=== PATIENT | female | born 1995 | race Caucasian/White ===

== ENCOUNTER 2024-04-10 21:00 | Emergency (ER) | payer BC, SELFPAY ==
[2024-04-10 21:08] VITALS: BP 130/78
[2024-04-10 21:29] LABS: % Basophils 0.3 % (0-2); % Eosinophils 2.5 % (0-6); % Immature Granulocytes 0.3 % (0-0.5); % Lymphocytes 22.3 % (20.5-51.1); % Monocytes 6.3 % (1.7-9.3); % Neutrophils 68.3 % (42.2-75.2); Absolute Eosinophils 0.2 10^3/uL (0-0.7); Absolute Lymphocytes 2.2 10^3/uL (1.2-3.4); Absolute Monocytes 0.6 10^3/uL (0.1-0.6); Absolute Neutrophils 6.6 10^3/uL (1.4-6.5); Hematocrit 33.6 % (37.0-47.0); Hemoglobin 10.7 g/dL (12.0-16.0); Mean Corp Hgb Conc. 31.8 g/dL (33.0-37.0); Mean Platelet Volume 10.4 fL (7.4-10.4); Nucleated Red Blood Cells % 0 %; Platelet Count 238 10^3/uL (130-400); Red Blood Cell Count 3.82 10^6/uL (4.20-5.40); Red Cell Dist. Width 13.9 % (11.5-14.5); White Blood Cell Count 9.7 10^3/uL (4.8-10.8)
[2024-04-10 21:44] LABS: ALT (SGPT) 14 U/L (0-35); AST (SGOT) 28 U/L (14-36); Albumin 4.1 g/dl (3.5-5.0); Alkaline Phosphatase 62 U/L (38-126); Blood Urea Nitrogen 12 mg/dl (7-17); Carbon Dioxide 29 mmol/L (22-30); Chloride 104 mmol/L (98-107); Glucose 98 mg/dl (70-99); Lipase 481 U/L (23-300); Potassium 3.5 mmol/L (3.5-5.1); Sodium 139 mmol/L (135-145); Total Bilirubin 0.4 mg/dl (0.2-1.3); Total Protein 6.7 g/dl (6.3-8.2); eGFR > 60.00
[2024-04-10 23:39] VITALS: BMI 32.8
[2024-04-10 23:43] VITALS: BP 125/64
--- NOTE | 2024-04-10 23:54 | ED.GENMED ---
History of Present Illness
General
Chief Complaint: Abdominal Symptoms
Source: patient
Exam Limitations: none
Time Seen by Provider: 04/10/24 23:10
Travel History
Have you had any contact with someone who has COVID-19?: No
Do you have any symptoms of coronavirus? Fever > 100 degrees, chills, cough, shortness of breath, sore throat, loss of taste or smell, muscle aches, or headache?: No
History of Present Illness
History of Present Illness:
This is a 29 year old female that comes in with c/o abd pain. states that she has had abd pain but today it was much worse. states that it was this sudden onset of 10/10 pain and vomiting. States that she is to see the GI specialist but not until
June. State that after the vomiting she felt shaky and her hands felt numb. States that she was also lightheaded and thought that she was going to pass out. States that she had diarrhea, headache and dizziness. Denies any fevr, chills, chest pain,
SOB, urinary burning.
Past History
Past History
ED Past Medical History: Asthma
ED Past Surgical History: Tonsilectomy
Social History
Tobacco: Former smoker
Personal:
Living: with family
Review of Systems
Review of Systems
All Other Systems: ROS reviewed and negative except as documented in HPI and ROS
Constitutional: Reports no symptoms; Denies fever or chills
EENT: Reports no symptoms
Respiratory: Reports no symptoms; Denies cough or trouble breathing
Cardiac: Reports no symptoms; Denies chest pain
ABD/GI: Reports abdominal pain, nausea, vomiting and diarrhea
: Reports no symptoms; Denies dysuria, frequency or urgency
Musculoskeletal: Reports no symptoms
Skin: Reports no symptoms
Neurological: Reports dizzy and headache
Psychiatric: Reports no symptoms
Phy Exam
General Physical Exam
General Presentation: well appearing and no apparent distress
General age: appears stated age
General Skin: warm and dry
General Habitus: normal
General Mental: alert
General Hydration: appears well hydrated
ENT Exam
ENT Exam: TM's normal, pharynx normal and neck supple
Eye Exam
Eye Exam: EOMI
Cardiovascular Exam
Cardiovascular Exam: regular rate/rhythm, no edema, no murmur and normal peripheral pulses
Pulmonary Exam
Pulmonary Exam: lungs clear, no respiratory distress, no rales, chest non tender, no crackles, no rhonchi, no wheezing and no cough
Gastrointestinal Exam
Gastrointestinal Exam: normal bowel sounds, soft, no organomegaly, no pulsatile mass, non distended and tender (Upper epigastric and RUQ tenderness with palpation)
Musculoskeletal Exam
Musculoskeletal Exam: full ROM and no edema
Skin Exam
Skin Exam: normal color, warm/dry, no rash and no petechia
Psychiatric Exam
Psychiatric Exam: normal mood/affect
Course
Orders/Labs/Results
Orders:
Orders
04/10/24 21:24
Complete Blood Count/With Diff Urgent
Comprehensive Metabolic Panel Urgent
Lipase Urgent
04/11/24 00:00
US Abdomen Complete/Upper Urgent
Reason For Exam: Upper abd discomfort
Abnormal Lab Results
04/10/24
21:24
RBC 3.82 L 10^6/uL
(4.20-5.40)
Hgb 10.7 L g/dL
(12.0-16.0)
Hct 33.6 L %
(37.0-47.0)
MCHC 31.8 L g/dL
(33.0-37.0)
Absolute Neuts (auto) 6.6 H 10^3/uL
(1.4-6.5)
Lipase 481 H U/L
(23-300)
04/10/24 21:24
04/10/24 21:24
H/H slightlya low. Lipase mildly elevated.
Vital Signs
Initial and Last Documented VS:
Initial Vital Signs
Temp Pulse Resp BP Pulse Ox
98.6 F 73 20 130/78 99
04/10/24 21:08 04/10/24 21:08 04/10/24 21:08 04/10/24 21:08 04/10/24 21:08
Last Documented Vital Signs
Temp Pulse Resp BP Pulse Ox
97.9 F 60 16 126/64 100
04/10/24 23:43 04/11/24 01:40 04/11/24 01:40 04/11/24 01:40 04/11/24 01:40
MDM/Problems Addressed
Differential Diagnosis Includes:
Gastritis, pancreatitis,
MDM/Problems Addressed:
This is a 29 year old female that comes in with c/o abd pain and vomiting. States that she has been having issues and is going to see the GI specialist. however, today it was the worse.
will check labs and get US.
Back into see patient. Explained that she has a gallstone but there is not sign of wall thickening or gallbladder disease. This may be a gastritis. will place patient on Protonix for the next 30 days. Patient to follow up with the GI specialist in
June as scheduled. This could also be very early Pancreatitis. Encouraged patient no alcohol. Return with any concerns.
Chronic conditions affecting care:
NA
Acute Exacerbation and/or Progression of Chronic Illness:
NA
*Radiology
Radiology exam reviewed: radiology read reviewed (US night hawk- Mobile gallstones. No sonographic Cole's sign, wall thickening, pericholecystic fluid, or other signs of cholecystitis. common bile duct is unremarkable. Borderline fatty liver.
remainder of the visualized upper abd is unremarkable. )
*Pulse Oximetry
Patient hypoxic: no
*EKG
Interpreted by ED Provider?: NA
Rate: EKG- N/A
*Inventory Control Specialist Interpretation
Rate: Inventory Control Specialist- N/A
*Critical Care Note
Total Time (30-74mins, 75-104mins- exclusive of procedures): Not Applicable
ED Attending Note
-
Portions of this chart may have been created with voice recognition software.� Occasional wrong word or��sound alike� substitutions may have occurred due to the inherent limitations of voice recognition software.
Discharge Plan
Departure
Patient Disposition: Home (Routine Discharge)
Date of Disposition: 04/11/24
Time of Disposition: 01:43
Patient with high blood pressure during this ER visit?: No
Condition: Good
Covid-19: Not Applicable
Discharge Problem:
Acute upper abdominal pain, Gastritis
Instructions: Gastritis (DC), Abdominal Pain
Prescriptions:
New
pantoprazole [Protonix] 40 mg tablet,delayed release (DR/EC)
40 mg PO DAILY Qty: 30 0RF
Referrals:
NONE,* [Family Provider] -
Activity Restrictions/Additional Instructions:
As discussed, your blood work is normal. Your Ultrasound shows that you have a mobile gallstone but there is no other signs of gallbladder disease. This may be a gastritis. Please decrease your caffeine intake. Increase your water intake to 8-8oz
glasses daily. You have been given a prescription for Protonix. Your prescription has been sent to your Pharmacy. Please take this daily. Follow up with the GI specialist as scheduled. IF YOU HAVE INCREASED OR CHANGING PAIN, FEVER, OR YOU HAVE ANY
OTHER CONCERNS PLEASE RETURN TO THE EMERGENCY ROOM.
Interventions
Interventions:
*Risk Screen - Suicide Last Done: 04/10/24 21:08
*General Assessment Last Done: 04/10/24 21:08
*Neglect/Abuse Screening Last Done: 04/10/24 21:08
ED- Fall Risk Assessment Last Done: 04/10/24 23:35
DD-Fskaxs-Umfhbtrbvl Assessment Last Done: 04/10/24 23:35
Discharge Date and Time
Print Language: KHMER
[2024-04-11 01:40] VITALS: BP 126/64
== END 2024-04-11 01:55 | disposition home or self-care (01) ==
LOC: EMR 21:00
PROVIDERS: Emergency Medicine; EMERGENCY PHYSICIAN Emergency Medicine
DX: K29.00 Acute gastritis without bleeding (principal); R10.10 Upper abdominal pain, unspecified; R42 Dizziness and giddiness; R51.9 Headache, unspecified; R19.7 Diarrhea, unspecified; K80.20 Calculus of gallbladder without cholecystitis without obstruction; J45.909 Unspecified asthma, uncomplicated; Z87.891 Personal history of nicotine dependence
CPT/HCPCS: 99284; 76700; 80053; 83690; 85025

== ENCOUNTER 2024-04-21 03:44 | Day surgery (SDC) | payer BC, SELFPAY ==
[2024-04-21 00:33] VITALS: BP 132/81
--- NOTE | 2024-04-21 00:58 | ED.GENMED ---
History of Present Illness
<Jairo Bal PA-C - Last Filed: 04/22/24 15:07>
General
Chief Complaint: Abdominal Pain
Time Seen by Provider: 04/21/24 00:41
Travel History
Have you had any contact with someone who has COVID-19?: No
Do you have any symptoms of coronavirus? Fever > 100 degrees, chills, cough, shortness of breath, sore throat, loss of taste or smell, muscle aches, or headache?: No
History of Present Illness
History of Present Illness:
29-year-old female presents the emergency department for evaluation of worsening right upper quadrant pain. She was seen in this emergency department at ago for the same complaint and diagnosed with cholelithiasis. She has been adhering to a
low-fat diet however pain is gradually worsening. She has had frequent bouts of pain that wake her up from sleep. No vomiting or diarrhea
Past History
<Jairo Bal PA-C - Last Filed: 04/22/24 15:07>
Past History
ED Past Medical History: Asthma
ED Past Surgical History: Tonsilectomy
Social History
Tobacco: Former smoker
Personal:
Living: with family
Review of Systems
<Jairo Bal PA-C - Last Filed: 04/22/24 15:07>
Review of Systems
Allergies reviewed?: Yes
All Other Systems: ROS reviewed and negative except as documented in HPI and ROS
Phy Exam
<Jairo Bal PA-C - Last Filed: 04/22/24 15:07>
Physical Exam
Physical Exam:
GEN: Well appearing, NAD, WDWN
Eyes: PERRLA, EOMs intact, no scleral icterus
HENT: NCAT, oral mucosa moist
Lungs: CTAB, no wheezes, rales, rhonchi, normal chest wall excursion
Cardiac: RRR, no M/R/G, no peripheral edema. Radial pulses 2+ bilat
Abdomen: Soft, exquisitely tender to the RUQ, no rigidity
Neuro: AO x 3
MSK: No gross deformity or ecchymosis. No edema. No digital clubbing
Skin: No rashes, petechiae. Normal color, no pallor or jaundice.
Psych: Calm, cooperative, proper hygiene
Course
<Jairo Bal PA-C - Last Filed: 04/22/24 15:07>
Orders/Labs/Results
Orders:
Orders
04/21/24 00:54
US Abdomen Limited Urgent
Comment: repeat biliary d/t increased pain
Reason For Exam: RUQ pain
04/21/24 00:55
Test Result ONCE
04/21/24 01:04
Complete Blood Count/With Diff Urgent
Comprehensive Metabolic Panel Urgent
Direct Bilirubin Urgent
HCG, Serum Qualitative Screen Urgent
Lipase Urgent
04/21/24 01:12
HYDROmorphone [Dilaudid] 0.5 mg IV NOW STA
04/21/24 01:21
Fentanyl Citrate/Pf [Sublimaze] 50 mcg IV NOW STA
04/21/24 01:51
Urinalysis Reflex To Culture Urgent
Date Specimen was Collected: 04/21/24
Time Specimen was Collected: 01:50
04/21/24 03:00
Flush (0.9% Sodium Chloride) [Flush (Nss)] See Dose Instructions IV PER PROTOCOL
04/21/24 03:12
Admit/Transfer Patient As Directed
Co-Sign Provider:
Level of Care: Inpatient admission
Assign to:: Medical/Surgical
Physician / Group: htay
Diagnosis: Cholelithiasis with progressive CBD dilatioan concerning for choledocholith
Reason for Hospitalization: Cholelithiasis with progressive CBD dilatioan concerning for choledocholithiasis
Expected length of stay greater than two midnights?: Yes
ELOS- Estimated Length of Stay in days: 3
I certify the patient meets the requirements for IP care: Yes
Code Status As Directed
Resuscitation Status: Full Code
04/21/24 03:21
Add On- LAB Urgent
Tests Added?: direct bili
04/21/24 03:23
Ampicillin/Sulbactam 3 G [Unasyn] 3 gm 0.9% Sodium Chloride 100 ml [Nss] 100 ml IV NOW
04/21/24 04:38
0.9% Sodium Chloride 1000 ml [Nss] 1,000 ml IV 100 mls/hr
Bisacodyl [Dulcolax] 10 mg RECTAL [id number] PRN
Docusate W/Senna [Senokot-S] 1 tablet PO BIDPRN PRN
HYDROmorphone [Dilaudid] 0.5 mg IV Q4HPRN PRN
Ketorolac [Toradol] 10 mg IV Q6HPRN PRN
Ondansetron Injectable [Zofran] 4 mg IV Q6HPRN PRN
Polyethylene Glycol Powder [Miralax] 17 grams PO DAILYPRN PRN
04/21/24 04:38
Consult Notification Routine
Specialty to Notify: Gastroenterology
Date consulting provider notified: 04/21/24
Time consulting provider notified: 06:57
Notified:: Provider
Consult Notification Routine
Specialty to Notify: Surgical
Date consulting provider notified: 04/21/24
Time consulting provider notified: 06:56
Notified:: Provider
GASTROINTESTINAL CONSULT Routine
Consulting Provider: Angelica Silver
Was physician already notified: No
Reason for consult: Cholelithiasis with progressive CBD dilation suspect choledocholithiasis
SURGICAL CONSULT Routine
Consulting Provider: Gama Stevens
Was physician already notified: Yes
Reason for consult: Cholelithiasis with progressive CBD dilation suspect choledocholithiasis
Activity As Directed
Activity Level: With Assistance
Intake/ Output As Directed
Frequency: Per unit guidelines
Pneumatic Compression Sleeves As Directed
Type: Knee high
Vital Signs As Directed
Frequency: Per unit guidelines
DX Deep Vein Thrombosis Video Routine
04/21/24 Breakfast
NPO
Allow oral meds: No
Allow clear liquids: No
NPO with Ice Chips: Yes
MR Mrcp Without IN AM
Comment:
Reason For Exam: Cholelithiasis with progressive CBD dilation
Recent pill cam endoscopy?: No
04/21/24 07:34
Prothrombin Time IN AM
04/22/24 07:35
Complete Blood Count/No Diff IN AM
Comprehensive Metabolic Panel IN AM
04/23/24 06:00
Complete Blood Count/No Diff IN AM
Comprehensive Metabolic Panel IN AM
Abnormal Lab Results
04/21/24
01:04
Hct 35.9 L %
(37.0-47.0)
MPV 10.5 H fL
(7.4-10.4)
Glucose 101 H mg/dl
(70-99)
Total Bilirubin 2.3 H mg/dl
(0.2-1.3)
Direct Bilirubin 1.3 H mg/dl
(0.0-0.4)
AST 900 H* U/L
(14-36)
ALT 997 H* U/L
(0-35)
Alkaline Phosphatase 221 H U/L
(38-126)
04/21/24 01:04
04/21/24 01:04
Vital Signs
Initial and Last Documented VS:
Initial Vital Signs
Temp Pulse Resp BP Pulse Ox
98.1 F 58 22 132/81 100
04/21/24 00:33 04/21/24 00:33 04/21/24 00:33 04/21/24 00:33 04/21/24 00:33
Last Documented Vital Signs
Temp Pulse Resp BP Pulse Ox
97.8 F 57 18 131/53 98
04/22/24 07:00 04/22/24 07:00 04/22/24 07:00 04/22/24 07:00 04/22/24 07:45
<Micha Osorio, - Last Filed: 04/21/24 02:41>
Orders/Labs/Results
Orders:
Orders
04/21/24 00:54
US Abdomen Limited Urgent
Comment: repeat biliary d/t increased pain
Reason For Exam: RUQ pain
04/21/24 00:55
Test Result ONCE
04/21/24 01:04
Complete Blood Count/With Diff Urgent
Comprehensive Metabolic Panel Urgent
Direct Bilirubin Urgent
HCG, Serum Qualitative Screen Urgent
Lipase Urgent
04/21/24 01:12
HYDROmorphone [Dilaudid] 0.5 mg IV NOW STA
04/21/24 01:21
Fentanyl Citrate/Pf [Sublimaze] 50 mcg IV NOW STA
04/21/24 01:51
Urinalysis Reflex To Culture Urgent
Date Specimen was Collected: 04/21/24
Time Specimen was Collected: 01:50
04/21/24 03:00
Flush (0.9% Sodium Chloride) [Flush (Nss)] See Dose Instructions IV PER PROTOCOL
04/21/24 03:12
Admit/Transfer Patient As Directed
Co-Sign Provider:
Level of Care: Inpatient admission
Assign to:: Medical/Surgical
Physician / Group: htay
Diagnosis: Cholelithiasis with progressive CBD dilatioan concerning for choledocholith
Reason for Hospitalization: Cholelithiasis with progressive CBD dilatioan concerning for choledocholithiasis
Expected length of stay greater than two midnights?: Yes
ELOS- Estimated Length of Stay in days: 3
I certify the patient meets the requirements for IP care: Yes
Code Status As Directed
Resuscitation Status: Full Code
04/21/24 03:21
Add On- LAB Urgent
Tests Added?: direct bili
04/21/24 03:23
Ampicillin/Sulbactam 3 G [Unasyn] 3 gm 0.9% Sodium Chloride 100 ml [Nss] 100 ml IV NOW
04/21/24 04:38
0.9% Sodium Chloride 1000 ml [Nss] 1,000 ml IV 100 mls/hr
Bisacodyl [Dulcolax] 10 mg RECTAL [id number] PRN
Docusate W/Senna [Senokot-S] 1 tablet PO BIDPRN PRN
HYDROmorphone [Dilaudid] 0.5 mg IV Q4HPRN PRN
Ketorolac [Toradol] 10 mg IV Q6HPRN PRN
Ondansetron Injectable [Zofran] 4 mg IV Q6HPRN PRN
Polyethylene Glycol Powder [Miralax] 17 grams PO DAILYPRN PRN
04/21/24 04:38
Consult Notification Routine
Specialty to Notify: Gastroenterology
Date consulting provider notified: 04/21/24
Time consulting provider notified: 06:57
Notified:: Provider
Consult Notification Routine
Specialty to Notify: Surgical
Date consulting provider notified: 04/21/24
Time consulting provider notified: 06:56
Notified:: Provider
GASTROINTESTINAL CONSULT Routine
Consulting Provider: Angelica Silver
Was physician already notified: No
Reason for consult: Cholelithiasis with progressive CBD dilation suspect choledocholithiasis
SURGICAL CONSULT Routine
Consulting Provider: Gama Stevens
Was physician already notified: Yes
Reason for consult: Cholelithiasis with progressive CBD dilation suspect choledocholithiasis
Activity As Directed
Activity Level: With Assistance
Intake/ Output As Directed
Frequency: Per unit guidelines
Pneumatic Compression Sleeves As Directed
Type: Knee high
Vital Signs As Directed
Frequency: Per unit guidelines
DX Deep Vein Thrombosis Video Routine
04/21/24 Breakfast
NPO
Allow oral meds: No
Allow clear liquids: No
NPO with Ice Chips: Yes
MR Mrcp Without IN AM
Comment:
Reason For Exam: Cholelithiasis with progressive CBD dilation
Recent pill cam endoscopy?: No
04/21/24 07:34
Prothrombin Time IN AM
04/22/24 07:35
Complete Blood Count/No Diff IN AM
Comprehensive Metabolic Panel IN AM
04/23/24 06:00
Complete Blood Count/No Diff IN AM
Comprehensive Metabolic Panel IN AM
Abnormal Lab Results
04/21/24
01:04
Hct 35.9 L %
(37.0-47.0)
MPV 10.5 H fL
(7.4-10.4)
Glucose 101 H mg/dl
(70-99)
Total Bilirubin 2.3 H mg/dl
(0.2-1.3)
Direct Bilirubin 1.3 H mg/dl
(0.0-0.4)
AST 900 H* U/L
(14-36)
ALT 997 H* U/L
(0-35)
Alkaline Phosphatase 221 H U/L
(38-126)
04/21/24 01:04
04/21/24 01:04
Vital Signs
Initial and Last Documented VS:
Initial Vital Signs
Temp Pulse Resp BP Pulse Ox
98.1 F 58 22 132/81 100
04/21/24 00:33 04/21/24 00:33 04/21/24 00:33 04/21/24 00:33 04/21/24 00:33
Last Documented Vital Signs
Temp Pulse Resp BP Pulse Ox
97.8 F 57 18 131/53 98
04/22/24 07:00 04/22/24 07:00 04/22/24 07:00 04/22/24 07:00 04/22/24 07:45
<Jairo Bal PA-C - Last Filed: 04/22/24 15:07>
MDM/Problems Addressed
MDM/Problems Addressed:
29 yo female presents with worsening RUQ pain, found to have marked increase in LFTs with dilatation of CBD. Clinical exam c/w cholecystitis. Will be admitted for further management
<Micha Osorio DO - Last Filed: 04/21/24 02:41>
*Radiology
Radiology exam reviewed: preliminary read by ED provider (Large gallstone)
*Pulse Oximetry
Patient hypoxic: no
*Critical Care Note
Total Time (30-74mins, 75-104mins- exclusive of procedures): Not Applicable
Data Reviewed
Source: patient
Further Testing Considered But Not Given:
Consider CT but symptoms clearly biliary in nature
ED Attending Note
<Jairo Bal PA-C - Last Filed: 04/22/24 15:07>
-
Portions of this chart may have been created with voice recognition software.� Occasional wrong word or��sound alike� substitutions may have occurred due to the inherent limitations of voice recognition software.
<Micha Osorio DO - Last Filed: 04/21/24 02:41>
ED Attending Note
Patient seen and examined by attending physician: Yes
I performed the substantive portion of visit, reviewed & personally made and approve the management plan that is documented in note by myself or FRANCOISE.: Yes
ED Attending Note:
9-year-old female with right upper quadrant pain. Progressive LFTs and slight progression of common bile duct. Concern for choledocholithiasis versus cholecystitis versus cholelithiasis. IV antibiotics. Admit
Discharge Plan
Departure
Patient Disposition: Admit
Date of Disposition: 04/21/24
Time of Disposition: 02:40
Admit to: Med/Surg
Presentation/result/management discussed w/ accepting MD/DO: Hospitalist
Discharge Problem:
Cholelithiasis, Possible choledocholithiasis
Interventions
Interventions:
*Risk Screen - Suicide Last Done: 04/21/24 01:06
*General Assessment Last Done: 04/21/24 01:06
*Neglect/Abuse Screening Last Done: 04/21/24 00:39
ED- Fall Risk Assessment Last Done: 04/21/24 01:06
*ED COVID-19 Vaccine History Last Done: 04/21/24 00:39
*Nursing Disposition Last Done: 04/21/24 04:36
HT-Omegzf-Uinxrwcprg Assessment Last Done: 04/21/24 01:06
Discharge Date and Time
Discharge Date/Time: 04/21/24 04:36
[2024-04-21 01:04] VITALS: BP 125/71
[2024-04-21 01:06] VITALS: BMI 32.6
[2024-04-21 01:09] LABS: % Basophils 0.3 % (0-2); % Eosinophils 2.3 % (0-6); % Immature Granulocytes 0.4 % (0-0.5); % Lymphocytes 25.2 % (20.5-51.1); % Monocytes 7.2 % (1.7-9.3); % Neutrophils 64.6 % (42.2-75.2); Absolute Eosinophils 0.2 10^3/uL (0-0.7); Absolute Lymphocytes 1.8 10^3/uL (1.2-3.4); Absolute Monocytes 0.5 10^3/uL (0.1-0.6); Absolute Neutrophils 4.7 10^3/uL (1.4-6.5); Hematocrit 35.9 % (37.0-47.0); Mean Corp Hgb Conc. 33.4 g/dL (33.0-37.0); Mean Corpuscular Hgb 27.8 pg (27.0-31.0); Mean Corpuscular Volume 83.3 fL (81.0-99.0); Mean Platelet Volume 10.5 fL (7.4-10.4); Nucleated Red Blood Cells % 0 %; Platelet Count 241 10^3/uL (130-400); Red Blood Cell Count 4.31 10^6/uL (4.20-5.40); Red Cell Dist. Width 13.8 % (11.5-14.5); White Blood Cell Count 7.3 10^3/uL (4.8-10.8)
[2024-04-21] MEDS: SUBLIMAZE 50 MCG IV (01:28)
[2024-04-21 01:37] LABS: Albumin 4.4 g/dl (3.5-5.0); Alkaline Phosphatase 221 U/L (38-126); Blood Urea Nitrogen 9 mg/dl (7-17); Calcium 9.9 mg/dl (8.4-10.2); Carbon Dioxide 27 mmol/L (22-30); Chloride 107 mmol/L (98-107); Estimated Creatinine Clearance > 125 ml/min; Glucose 101 mg/dl (70-99); Lipase 110 U/L (23-300); Potassium 3.8 mmol/L (3.5-5.1); Sodium 142 mmol/L (135-145); Total Bilirubin 2.3 mg/dl (0.2-1.3); Total Protein 7.1 g/dl (6.3-8.2); eGFR > 60.00
[2024-04-21 01:44] LABS: ALT (SGPT) 997 U/L (0-35); AST (SGOT) 900 U/L (14-36)
[2024-04-21 01:46] LABS: HCG, Serum Qualitative Screen Negative
[2024-04-21 02:00] LABS: Urine Albumin Negative (Neg - Trace); Urine Bilirubin Negative (Negative); Urine Character Clear (Clear); Urine Color Yellow; Urine Glucose Negative (Negative); Urine Ketone Negative (Negative); Urine Leukocyte Negative (Negative); Urine Nitrite Negative (Negative); Urine Occult Blood Negative (Negative); Urine Urobilinogen Negative (Neg - 1+)
--- NOTE | 2024-04-21 03:06 | HPS.HSE ---
Addendum entered and electronically signed by Andrade Oconnor MD 04/21/24 13:38:
MRCP without
1. Mild biliary dilatation without evidence for choledocholithiasis.
2. 1.1 cm gallstone and mild gallbladder distention.
3. Mild hepatomegaly.
4. Small amount of peritoneal fluid in the pelvis and right paracolic gutter.
Original Note:
Family Physician
-
Family Physician: * NONE
Chief Complaint
-
worsening right upper quadrant pain.
History of Present Illness
HPI
29F recently evaluated at ER for acute RUQ pain on 04/10. POS US for GS and CBD was 5 mm then.
Retuned to ER for evaluation of worsening right upper quadrant pain despite compliance with low fat diet, more frequent RUQ pain.
ROS:
denied chills and fever
Denied emesis
Medical History
Past Medical History
Past Medical History: Reports Asthma
Past Surgical History: Reports Tonsilectomy
Social History
Tobacco: Former Smoker
Alcohol: Occasional
Personal:
Living: With Family
Family History
Family History: Not pertinent
Allergies / Home Medications
Allergies reflects when Allergies were last updated in [facility].
Home Medications with original date entered in [facility]
Allergy/Medication List:
Allergies
Allergy/AdvReac Type Severity Reaction Status Date / Time
No Known Allergies Allergy Verified 04/21/24 00:33
Home Medications
pantoprazole 40 mg tablet,delayed release (Protonix) 40 mg PO DAILY Gastrointestinal issue #30 tabs 04/11/24
Review of Systems
-
Constitutional: Reports No Symptoms
EENT: Reports No Symptoms
Respiratory: Reports No Symptoms
Cardiac: Reports No Symptoms
Abdomen/GI: Reports See HPI, Abdominal Pain and Nausea
: Reports No Symptoms
Musculoskeletal: Reports No Symptoms
Skin: Reports No Symptoms
Neurological: Reports No Symptoms
Endocrine: Reports No Symptoms
Hematologic/Lymphatic: Reports No Symptoms
Psych: Reports No Symptoms
Physical Exam
Vital Signs
Vital Signs
Temp Pulse Resp BP Pulse Ox
98.1 F 58 22 125/71 98
04/21/24 00:33 04/21/24 00:33 04/21/24 00:33 04/21/24 01:04 04/21/24 01:06
Physical Exam
General: No Apparent Distress and Conversant
HEENT: NormoCephalic, Anicteric, Moist mucous membranes and Neck Nontender
Respiratory: Clear; No Wheezes, Rales, Rhonchi or Crackles
Cardiac: S1/S2 and Regular Rhythm; No Tachycardia
Breast: Deferred by me
GI: Soft and Tender (RUQ : severe )
Rectal: Deferred by Provider
Genito-urinary: Deferred by me
Musculoskeletal: No Edema
Skin: Warm and Dry
Neuro: AO x 3
Psych: Calm and Intact Judgment/Insight
Laboratory Results
-
04/21/24 01:04
04/21/24 01:04
Laboratory Results
Total Bilirubin 2.3 mg/dl (0.2-1.3) H 04/21/24 01:04
AST 900 U/L (14-36) H* 04/21/24 01:04
ALT 997 U/L (0-35) H* 04/21/24 01:04
Alkaline Phosphatase 221 U/L (38-126) H 04/21/24 01:04
Lipase 110 U/L (23-300) 04/21/24 01:04
Data Reviewed
-
Ultrasound: Report Reviewed by me
Lab Data: Labs Reviewed by me
Old Records: Reviewed
Impression/Plan
-
Reviewed VS: afebrile, stable
Data
unremarkable CBC
unremarkable BMP
TB 2.3 - was 0.4 on 04/10/24
AST 900 - was 28 on 04/10/24
ALT 997 - was 14 on 04/10/24
AKP 221- was 62 on 04/10/24
NEG HCG
NEG UA
04/21/24 US abdomen
1.4cm GS
Mildly distended GB
No GBWT
No PCF
POS Cole
Mildly dilated CBD 8mm
NO PRIOR admission:
ASSESSMENT & PLAN
Worsening acute RUQ pain and tenderness
Sono evidence of POS Cholelithiasis with progressive CBD dilational concerning for choledocholithiasis: No GBWT . No PCF
Significant interval new abn LFTs with elevated TB
- cont. empiric Unasyn
- NPO, IVF
- Narcotic analgesia
- check direct Bilirubin
- MRCP
- GI and GS consult
HX asthma
- stable
DVT Px: SCD
Code: Full code
IP MS
[2024-04-21] MEDS: UNASYN IV (03:40)
[2024-04-21] MEDS: FLUSH (NSS) 1 FLUSH IV (03:41)
[2024-04-21 04:02] LABS: Direct Bilirubin 1.3 mg/dl (0.0-0.4)
[2024-04-21 04:46] VITALS: BP 122/63; BMI 31.6
[2024-04-21] MEDS: NSS 1000 IV ×3 (04:52→23:44)
[2024-04-21] MEDS: DILAUDID 0.5 MG IV ×4 (04:52→23:13)
[2024-04-21 07:00] VITALS: BP 100/50
[2024-04-21 08:49] LABS: INR 1.03; PT 13.3 Sec (11.4-14.6)
[2024-04-21] MEDS: TORADOL 10 MG IV ×2 (10:18→16:41)
--- NOTE | 2024-04-21 10:34 | CON.GI ---
Consultation
-
Date/Time Consultation Requested: 04/21/2024
Date/Time Consultation Performed: 04/21/2024
Requesting Provider: Dr. Orozco
Performing Provider: Dr. Silver
Reason for Consultation: Abdominal pain
Medical History
Chief Complaint / HPI
Chief Complaint: Abdominal pain
History of Present Illness:
29-year-old female with history of asthma presenting with right upper quadrant abdominal pain. In the ER, she was noted to have elevated LFTs with total bilirubin of 2.3, direct bilirubin 1.3, AST 900, ALT of 997 and alkaline phosphatase of 221.
Lipase in normal range. Prior LFTs 04/10/2024 within normal limits. No fevers or chills. She reports that she has had intermittent episodes of She was seen in the emergency room with similar complaints on 10 April, abdominal ultrasound at that time
showed cholelithiasis without any evidence of cholecystitis, fatty liver noted. Repeat abdominal ultrasound yesterday showed cholelithiasis and mild biliary ductal dilation. 1.3 cm calculus in the gallbladder lumen. No evidence of wall thickening.
Upper abdominal discomfort on and off for years with food, has not been too bothersome, has not seen a GI physician. In the last 2 months, she has had pain more in the epigastric/right upper quadrant after meals, she tried gluten-free diet without
much improvement in symptoms. Now pain is more localized to right upper quadrant, sometimes radiates to the right upper back. Some nausea without vomiting. No significant heartburn or trouble swallowing. No constipation, diarrhea, blood in the
stool or black stool. No loss of appetite or unintentional weight loss or NSAID use. No family history of colon cancers or polyps. Prior smoker, does not drink much alcohol, uses marijuana.
Past Medical History
Past Medical History: Asthma
Past Surgical History: Tonsilectomy
Social History
Tobacco: Former Smoker
Alcohol: Occasional
Family History
Family History: Reviewed & Not Pertinent
Allergies / Home Medications
Allergy/AdvReac Type Severity Reaction Status Date / Time
No Known Allergies Allergy Verified 04/21/24 00:33
�Medication �Instructions �Recorded
pantoprazole 40 mg tablet,delayed 40 mg PO DAILY Gastrointestinal 04/11/24
release (Protonix) issue #30 tabs
Review of Systems
-
All other systems: A 12 pt ROS was Negative except as stated above in HPI
Vital Signs
Temp Pulse Resp BP Pulse Ox
98.0 F 54 14 100/50 100
04/21/24 07:00 04/21/24 07:00 04/21/24 07:00 04/21/24 07:00 04/21/24 07:00
Physical Exam
Exam
General: Well Developed and Well Nourished
HEENT: Normocephalic
Respiratory: Clear
Cardiac: S1/S2 and Regular Rhythm
GI: Soft and Tender (Discomfort in the right upper quadrant)
Neuro: Awake and AO x 3
Results
WBC 7.3 10^3/uL (4.8-10.8) 04/21/24 01:04
Hgb 12.0 g/dL (12.0-16.0) 04/21/24 01:04
Hct 35.9 % (37.0-47.0) L 04/21/24 01:04
MCV 83.3 fL (81.0-99.0) 04/21/24 01:04
Plt Count 241 10^3/uL (130-400) 04/21/24 01:04
Absolute Neuts (auto) 4.7 10^3/uL (1.4-6.5) 04/21/24 01:04
PT 13.3 Sec (11.4-14.6) 04/21/24 07:34
INR 1.03 04/21/24 07:34
Sodium 142 mmol/L (135-145) 04/21/24 01:04
Potassium 3.8 mmol/L (3.5-5.1) 04/21/24 01:04
Chloride 107 mmol/L (98-107) 04/21/24 01:04
Carbon Dioxide 27 mmol/L (22-30) 04/21/24 01:04
BUN 9 mg/dl (7-17) 04/21/24 01:04
Creatinine 0.6 mg/dL (0.6-1.0) 04/21/24 01:04
Calcium 9.9 mg/dl (8.4-10.2) 04/21/24 01:04
Total Bilirubin 2.3 mg/dl (0.2-1.3) H 04/21/24 01:04
AST 900 U/L (14-36) H* 04/21/24 01:04
ALT 997 U/L (0-35) H* 04/21/24 01:04
Alkaline Phosphatase 221 U/L (38-126) H 04/21/24 01:04
Lipase 110 U/L (23-300) 04/21/24 01:04
Diagnostic Image Results:
Prior GI Procedures:
EGD:
Colonoscopy:
Assessment / Plan
-
29-year-old female with history of asthma presenting with right upper quadrant abdominal pain intermittently, in the ER, elevated LFTs, abdominal ultrasound showing gallstones and mild bile duct dilation.
Rule out choledocholithiasis.
MRCP 1. Mild biliary dilatation without evidence for choledocholithiasis.
2. 1.1 cm gallstone and mild gallbladder distention.
3. Mild hepatomegaly.
4. Small amount of peritoneal fluid in the pelvis and right paracolic gutter.
-N.p.o.
-MRCP without any choledocholithiasis, she is scheduled for laparoscopic cholecystectomy tomorrow
-Pain control. IV fluids. Monitor electrolytes and replete.
-Will sign off, please call back if needed
-
-
Thank you for consultation and allowing me to participate in the patient's care. Please call the bellperson GI physician during the after hours with any questions or concerns.
--- NOTE | 2024-04-21 11:08 | CM ---
Initial assessment completed with patient and who live in a 3rd floor apartment with no elevator in the building, 5 steps to enter, no DME or in-home services, [employer] was independent, drove and worked. Substance abuse in the past, 2014, and
was admitted to psychiatric inpatient for psychosis. No psychiatric issues since. Pharmacy is [facility] on [facility] in [place] and PCP is [facility]. Anticipate probable ilia with no needs at discharge.
[2024-04-21] MEDS: ZOSYN 50 IV ×3 (11:25→23:08)
--- NOTE | 2024-04-21 11:32 | W.PN.UPDATE ---
Update Note
Progress Note Update
Non-billable note (H&P completed 3 AM Todays date)
reports RUQ pain
requesting pain med
no nausea
no fever reported, but started on Abx per GS
Assessment:
Acute RUQ pain
- suspected acute cholecystitis, possible choledocholithiasis
- await MRCP read
- continue NPO/IVF
- IV Abx
- pain control, anti-emetics
Hx of Asthma
- stable
GERD on PPI
DVT ppx: SCDs
Code: Full
--- NOTE | 2024-04-21 12:39 | CON.GS ---
Consultation
-
Date/Time Consultation Requested: 04/21/24 0428
Requesting Provider: Anastasia
Reason for Consultation: Cholelithiasis with progressive CBD dilation suspect choledocholithiasis
Medical History
-
Chief Complaint: abdominal pain
History of Present Illness:
Ms Cousin is a 29 yo female with a h/o asthma and T&A who presents for evaluation of worsening RUQ pain. She notes intermittent mild RUQ over the past month which caused her to present through the ED on 04/11 for evaluation as she began having nausea
with vomiting as well. She was diagnosed with gastritis at that time with cholelithiasis noted on US and was provided with instructions for GI follow up. She presented through the ED overnight as her pain has gradually worsened over the past week
with more frequent episodes of severe pain lasting for up to an hour. She has been eating small, low fat meals as well as cutting out gluten and sugar without much benefit. She around 11pm with pain last night and presented as it was unrelenting.
She is markedly tender to the RUQ with +Cole's on exam. She denies active nausea.
Past Medical History
Past Medical History: Asthma
Past Surgical History: Orthopedic (foot ) and Tonsilectomy
Social History
Tobacco: Former Smoker (1/2 ppd x10 years, quit 1 year ago)
Alcohol: None
Drug: Marijuana (medical card, uses daily)
Family History
Family History: Reviewed & Not Pertinent
Allergies / Home Medications
Allergy/AdvReac Type Severity Reaction Status Date / Time
No Known Allergies Allergy Verified 04/21/24 00:33
�Medication �Instructions �Recorded �Confirmed �Type
pantoprazole 40 mg tablet,delayed 40 mg PO DAILY Gastrointestinal 04/11/24 04/21/24 Rx
release (Protonix) issue #30 tabs
Review of Systems
-
History Source: Patient and Family
All other systems: Negative unless noted
A 10 point review of systems was completed, and was negative except as per HPI.
Physical Exam
Vital Signs
Temp Pulse Resp BP Pulse Ox
98.0 F 54 14 100/50 100
04/21/24 07:00 04/21/24 07:00 04/21/24 07:00 04/21/24 07:00 04/21/24 07:00
04/20/24 04/21/24 04/22/24
06:59 06:59 06:59
Actual Weight 83.416 kg
Body Mass Index (BMI) 31.6
Lab Results
04/21/24 01:04
04/21/24 01:04
WBC 7.3 10^3/uL (4.8-10.8) 04/21/24 01:04
Hgb 12.0 g/dL (12.0-16.0) 04/21/24 01:04
Hct 35.9 % (37.0-47.0) L 04/21/24 01:04
Plt Count 241 10^3/uL (130-400) 04/21/24 01:04
Abs Immat Gran (auto) 0.0 10^3/uL (0-0.05) 04/21/24 01:04
Neutrophils % 64.6 % (42.2-75.2) 04/21/24 01:04
Physical Exam
General: Well Developed and Well Nourished
HEENT: Moist Mucous Membranes
Respiratory: Non Labored Respirations
GI: Soft, Non Distended and Tender (RUQ)
Skin: Warm
Neuro: Awake, Alert and AO x 3
Psych: Calm
Data Reviewed
-
Ultrasound: Image Personally Visualized and interpreted, Report Reviewed by me, Discussed with Physician, Discussed with Patient and Discussed with Family
MRI: Image Personally Visualized and interpreted and Report Reviewed by me
Labs: Discussed with Patient
Old Records: Reviewed
Assessment / Plan
-
29 yo female presenting with recurrent biliary colic symptoms over the past 4-5 weeks. Previously with intermittent discomfort and now with persistent RUQ pain/tenderness. ABD US with cholelithiasis and +Cole's. LFT's mildly elevated prompting
MRCP to r/o choledocholithiasis with none noted. Some gallbladder distention and pericholecystic fluid present on imaging. AFVSS. No leukocytosis. ?biliary colic vs acc
--Start IV Zosyn 3.375mg q6h for empiric coverage
--OK for clear liquids today
--Tentative OR tomorrow for lap ilia
--Continue IVF
--GI consult pending
[2024-04-21 15:00] VITALS: BP 116/68
[2024-04-21] MEDS: ZOFRAN 4 MG IV (20:27)
[2024-04-21 23:00] VITALS: BP 124/64
[2024-04-22] VITALS (14 sets, daily range): BP systolic 92–154; BP diastolic 53–95
[2024-04-22] MEDS: TORADOL 10 MG IV ×3 (03:19→23:30)
[2024-04-22] MEDS: ZOSYN 50 IV ×4 (05:02→23:30)
[2024-04-22] MEDS: DILAUDID 0.5 MG IV ×2 (07:58→20:45)
[2024-04-22 08:07] LABS: Hematocrit 32.8 % (37.0-47.0); Hemoglobin 10.4 g/dL (12.0-16.0); Mean Corp Hgb Conc. 31.7 g/dL (33.0-37.0); Mean Corpuscular Hgb 27.7 pg (27.0-31.0); Mean Corpuscular Volume 87.2 fL (81.0-99.0); Red Blood Cell Count 3.76 10^6/uL (4.20-5.40); Red Cell Dist. Width 13.9 % (11.5-14.5); White Blood Cell Count 8.9 10^3/uL (4.8-10.8)
[2024-04-22 09:02] LABS: Mean Platelet Volume 11.3 fL (7.4-10.4); Platelet Count 169 10^3/uL (130-400)
[2024-04-22 09:13] LABS: ALT (SGPT) 549 U/L (0-35); AST (SGOT) 212 U/L (14-36); Albumin 3.6 g/dl (3.5-5.0); Alkaline Phosphatase 178 U/L (38-126); Blood Urea Nitrogen 12 mg/dl (7-17); Calcium 9.1 mg/dl (8.4-10.2); Carbon Dioxide 16 mmol/L (22-30); Chloride 111 mmol/L (98-107); Estimated Creatinine Clearance > 125 ml/min; Glucose 72 mg/dl (70-99); Potassium 3.7 mmol/L (3.5-5.1); Sodium 138 mmol/L (135-145); Total Bilirubin 1.7 mg/dl (0.2-1.3); eGFR > 60.00
--- NOTE | 2024-04-22 09:57 | W.PN.UPDATE ---
Update Note
Progress Note Update
Patient is now under surgery service. Will sign off. Please call us with any questions.
--- NOTE | 2024-04-22 10:01 | W.PN.GS2 ---
Today's Communication / Plan
-
OR today for lap ilai
Assessment / Plan
-
Assessment:
29 yo female presenting with recurrent biliary colic symptoms over the last 2 weeks and now persistent RUQ pain.
LFT's elevated, no leukocytosis.
MCRP without choledocholithiasis.
AFVSS
Plan:
Plan laparoscopic cholecystectomy with cholangiogram today pending OR availability
Keep NPO for OR
Continue Zosyn
IVF while NPO
Continue analgesics/antiemetics
Subjective Data
-
Date of Service: April 22, 2024
Patient seen and evaluated at bedside. Denies n/v. Pain to RUQ persists with tenderness.
Objective Data
-
Intake and Output
04/21/24 04/22/24 04/23/24
06:59 06:59 06:59
Intake Total 2510 / 2510
Balance 2510 / 2510
Intake:
Oral fluids 60 / 60
IV fluids (Total) 2400 / 2400
IV piggybacks 50 / 50
Other:
Number of approximated SMALL 1
amounts of urine
Number of approximated MODERATE 1 1
amounts of urine
Vital Signs
Temp Pulse Resp BP Pulse Ox
97.8 F 57 18 131/53 98
04/22/24 07:00 04/22/24 07:00 04/22/24 07:00 04/22/24 07:00 04/22/24 07:45
Lab Results
04/22/24 07:35
04/22/24 07:35
Calcium 9.1 mg/dl (8.4-10.2) 04/22/24 07:35
Total Bilirubin 1.7 mg/dl (0.2-1.3) H 04/22/24 07:35
Direct Bilirubin Cancelled 04/21/24 03:06
AST 212 U/L (14-36) H 04/22/24 07:35
ALT 549 U/L (0-35) H* 04/22/24 07:35
Alkaline Phosphatase 178 U/L (38-126) H 04/22/24 07:35
Total Protein 6.0 g/dl (6.3-8.2) L 04/22/24 07:35
Albumin 3.6 g/dl (3.5-5.0) 04/22/24 07:35
Physical Exam
-
NAD
ABD soft, RUQ tender, ND
--- NOTE | 2024-04-22 12:48 | W.SUR.PREOP ---
Pre-Operative Surgical Note
-
I have examined this patient prior to the performance of the scheduled procedure.
The patient's condition is unchanged from the time of the current History and
Physical and the patient is able to undergo the scheduled procedure.
--- NOTE | 2024-04-22 14:01 | CM ---
Lap Tamika on this date. Anticipate no needs at discharge.
--- NOTE | 2024-04-22 14:06 | SUR.OPER ---
PATIENT SUPINE, LEFT ARM TUCKED A SIDE WITH FOAM PADDING PROTECTING ULNAR SIDE OF FOREARM, RIGHT ARM SECURED ON PADDED ARM BOARD
--- NOTE | 2024-04-22 14:33 | SUR.OPER ---
FEET AGAINST PADDED FOOTBOARD
--- NOTE | 2024-04-22 14:55 | W.IMMPOSTOP ---
Surgical Immed Post Op Note
-
Primary Surgeon: Gama Stevens MD
Assisting Surgeon: None
Pre-op Diagnosis: Acute cholecystitis
Post-op Diagnosis: Same
Procedure Performed: Laparoscopic cholecystectomy with cholangiogram
Anesthesia Type: General
Specimen / Cultures: Gallbladder and contents
Estimated Blood Loss: 11 cc
Complications: None
Operative Findings: Distended gallbladder with flimsy but significant omental adhesions over the anterior surface which took some time to carefully take down before exposure of the true cystic triangle. Fairly prominent cystic artery ligated early
to allow for exposure of the cystic plate. A cholangiogram was performed which demonstrated free flow of contrast into the duodenum, no filling defects and normal biliary anatomy. The pancreatic duct did light up on the cholangiogram.
POST OP PLAN:
Imaging: None
Labs: Routine AM
Diet: Advance to Regular as tolerated
Analgesia: Tylenol 650mg q6 Ja, Sherry 5mg q6 PRN, Dilaudid 0.5mg q2h PRN
Neuro/vascular checks: q4h
AC/AP: Hold Therapeutic AC, Ok for DVT PPx
Activity: Ad Mena
Wound/Incisions/Drains: Routine
Abx: Can continue while admitted
Dispo: RNF, anticipate discharge home later today versus tomorrow pending clinical course and pain control.
--- NOTE | 2024-04-22 15:02 | OR.RPT ---
Operative Report
Operative Report
Patient Name: Alice Lawson
: 1995
Date of Operation: 04/22/2024
Preoperative Diagnosis: Acute cholecystitis
Postoperative Diagnosis: Same
Procedure(s):
Laparoscopic Cholecystectomy with Cholangiogram
Surgeon(s):
Dr. Stevens
Midlevel Provider(s):
ALFREDITO Petit
Anesthesia: General
Estimated Blood Loss: 11 cc
Urine Output: None
Drains/Lines/Implants: None
Specimens:
1. Gallbladder and contents
HPI/Surgical Indications:
This is a 29-year-old female who presents with 1 day history of abdominal pain in the setting of 1 month history of postprandial right upper quadrant abdominal pain. Exam, labs and imaging are consistent with acute cholecystitis with some concern
for choledocholithiasis given elevated liver enzymes. She did undergo an MRCP which was negative for choledocholithiasis. Risks/Benefits/Alternatives were discussed at length, and the patient agreed to proceed with surgery.
Operative Findings: Distended gallbladder with flimsy but significant omental adhesions over the anterior surface which took some time to carefully take down before exposure of the true cystic triangle. Fairly prominent cystic artery ligated early
to allow for exposure of the cystic plate. A cholangiogram was performed which demonstrated free flow of contrast into the duodenum, no filling defects and normal biliary anatomy. The pancreatic duct did light up on the cholangiogram.
Procedure Description:
The patient was brought to the Operating Room and placed in the supine position with one arm tucked. Following uneventful induction of general endotracheal anesthesia, an orogastric tube was placed. The abdomen was prepped and draped in the usual
sterile fashion. A timeout was performed confirming the procedure, consent, and that IV antibiotics were infused and sequential compression devices were confirmed to be on. The abdomen was entered using a left subcostal Veress technique which
required 1 pass followed by a 5 mm Optiview trocar. Pneumoperitoneum to 15 mmHg pressure was obtained without difficulty and we confirmed that no injury had occurred during our entry. The patient was positioned in reverse Trendelenberg and rotated
with the right side up slightly. Two 5mm trocars were then placed along the right subcostal margin, and an 11 mm port in the epigastrium. A locking grasping forceps was placed on the fundus of the gallbladder where it was then retracted cephalad and
to the right. There was a significant adhesions overlying the anterior surface of the gallbladder from the omentum and the surrounding tissues that were obscuring the triangle of Calot. These were all taken down using electrocautery and blunt
dissection. Using appropriate grasping instruments, the peritoneum overlying the triangle of Calot was incised and extended superiorly on both the anterior and posterior gallbladder farris. The infundibulum was dissected off the cystic plate. The
cystic artery was identified early as it was fairly prominent. After isolating it, I ligated with 2 clips proximally and 1 distally to allow for better exposure of the cystic plate. The cystic duct/gallbladder junction in turn was identified,
dissected circumferentially and a clip was placed. A ductotomy was made and a cholangiocatheter on an Cardona clamp was inserted into the cystic duct. A C-arm was draped and brought into the field. An intra-operative cholangiogram was performed and
was noted to have:
No filling defects in the biliary tree
No significant biliary dilation
Brisk flow of contrast into the duodenum
Normal biliary anatomy
The catheter was then removed and the cystic duct was controlled with a 5 mm titanium clip followed by a 0 PDS Endoloop around both the cystic duct and cystic artery as they were in close proximity here. After ensuring both the artery and duct were
divided, the gallbladder was freed from the liver using electrocautery. There was no spillage of bile or stones. The gallbladder bed was inspected and excellent hemostasis was obtained. The gallbladder was extracted through the 11 mm trocar site
using an endocatch bag. The site had to be enlarged slightly to accommodate the removal of the gallbladder. The abdomen was again irrigated and excellent hemostasis was assured. All remaining trocars were then removed and the pneumoperitoneum was
evacuated. The 11 mm trocar site was closed using 0 PDS suture with help of a Kevin Chester device. All trocar sites were closed at the skin level using 4-0 Monocryl followed by Dermabond. Overall, the patient tolerated the procedure well and
was taken to the Recovery Room postoperatively in stable condition.
I was the attending physician and performed the procedure with assistance from the PA above.The assistance of Ewa Dougherty was required due to the complexity of the procedure. During the procedure Ewa assisted with retraction of tissues, helping
provide exposure, holding camera as well as closure of the trocar sites. I was the attending physician and present for all portions of the procedure other than skin closure.
Gama Stevens MD
[2024-04-22] MEDS: DEMEROL 12.5 MG IV ×2 (15:30→15:38)
[2024-04-22] MEDS: ZOFRAN 4 MG IV (15:30)
[2024-04-22] MEDS: SUBLIMAZE 50 MCG IV ×3 (15:38→16:00)
[2024-04-22] MEDS: NSS 1000 IV (17:00)
[2024-04-23 00:45] VITALS: BP 138/66
[2024-04-23] MEDS: DILAUDID 0.5 MG IV ×2 (00:45→04:45)
[2024-04-23 03:22] VITALS: BP 119/59
[2024-04-23] MEDS: ZOSYN 50 IV (05:00)
[2024-04-23 05:31] LABS: Hematocrit 32.8 % (37.0-47.0); Hemoglobin 10.8 g/dL (12.0-16.0); Mean Corp Hgb Conc. 32.9 g/dL (33.0-37.0); Mean Corpuscular Hgb 28.1 pg (27.0-31.0); Mean Corpuscular Volume 85.2 fL (81.0-99.0); Mean Platelet Volume 11.1 fL (7.4-10.4); Platelet Count 226 10^3/uL (130-400); Red Blood Cell Count 3.85 10^6/uL (4.20-5.40); Red Cell Dist. Width 13.9 % (11.5-14.5); White Blood Cell Count 14.2 10^3/uL (4.8-10.8)
[2024-04-23 06:02] LABS: ALT (SGPT) 410 U/L (0-35); AST (SGOT) 109 U/L (14-36); Albumin 3.8 g/dl (3.5-5.0); Alkaline Phosphatase 163 U/L (38-126); Blood Urea Nitrogen 9 mg/dl (7-17); Calcium 9.3 mg/dl (8.4-10.2); Carbon Dioxide 17 mmol/L (22-30); Chloride 109 mmol/L (98-107); Estimated Creatinine Clearance > 125 ml/min; Glucose 106 mg/dl (70-99); Sodium 136 mmol/L (135-145); Total Protein 6.3 g/dl (6.3-8.2); eGFR > 60.00
[2024-04-23 07:00] VITALS: BP 144/74
--- NOTE | 2024-04-23 08:02 | W.PN.GS2 ---
Addendum entered and electronically signed by Gama Stevens MD 04/23/24 08:40:
I saw and examined the patient independently.
The resident's note was reviewed and I agree with the note, assessment and plan except where noted below.
Comment: 29-year-old female postoperative day 1 from a laparoscopic cholecystectomy and cholangiogram for acute cholecystitis. Doing well, expected postoperative course. A little more pain noted on rounds after mobilizing. Encouraged p.o.
narcotic over the Dilaudid as it is a little bit more longer lasting. As long as her pain is well-controlled we will d/c her home today.
Original Note:
Today's Communication / Plan
-
D/c home today with f/u outpatient
Assessment / Plan
-
Assessment:
29 yo female with acute cholecystitis s/p Laparoscopic cholecystectomy with cholangiogram 04/22/2024
LFTs trending down, Leukocytosis.
MCRP without choledocholithiasis.
Afebrile, with normal vital signs.
Plan:
s/p Laparoscopic cholecystectomy with cholangiogram 04/22/2024
D/C home today
D/c abx on discharge
Continue Analgesics
Tolerated Regular diet, continue
Subjective Data
-
Discussed with patient at bedside. Patient reports improvement in abdominal pain. post-op. Reports pain is a 3/10 mild cramping. Denies nausea. Denies vomiting. Tolerated diet overnight. Passed gas.
Objective Data
-
Intake and Output
04/22/24 04/23/24 04/24/24
06:59 06:59 06:59
Intake Total 2510 / 2510 1849 / 1850
Balance 2510 / 2510 1849 / 1849
Intake:
Oral fluids 60 / 60 600 / 600
IV fluids (Total) 2400 / 2400 1150 / 1150
Normosol 150 / 150
IV piggybacks 50 / 50 100 / 100
Other:
Number of approximated SMALL 1
amounts of urine
Number of approximated MODERATE 1 2
amounts of urine
Number of approximated LARGE 3
amounts of urine
Vital Signs
Temp Pulse Resp BP Pulse Ox
98.3 F 51 18 144/74 100
04/23/24 07:00 04/23/24 07:00 04/23/24 07:00 04/23/24 07:00 04/23/24 07:00
Lab Results
04/23/24 04:41
04/23/24 04:41
Calcium 9.3 mg/dl (8.4-10.2) 04/23/24 04:41
Total Bilirubin 1.0 mg/dl (0.2-1.3) 04/23/24 04:41
Direct Bilirubin Cancelled 04/21/24 03:06
AST 109 U/L (14-36) H 04/23/24 04:41
ALT 410 U/L (0-35) H 04/23/24 04:41
Alkaline Phosphatase 163 U/L (38-126) H 04/23/24 04:41
Total Protein 6.3 g/dl (6.3-8.2) 04/23/24 04:41
Albumin 3.8 g/dl (3.5-5.0) 04/23/24 04:41
Physical Exam
-
General: Well Developed and Well Nourished
HEENT: Moist Mucous Membranes
Lungs: Clear to auscultation.
Abd: Soft, non tender, non distended.
Skin: Warm
Neuro: Awake, Alert and AO x 3
Psych: Calm
[2024-04-23] MEDS: TORADOL 10 MG IV (08:23)
[2024-04-23] MEDS: FLUSH (NSS) 2 FLUSH IV (08:24)
[2024-04-23] MEDS: ULTRAM 50 MG PO (09:37)
[2024-04-23 10:35] VITALS: BP 153/82
== END 2024-04-23 11:20 | disposition home or self-care (01) ==
LOC: PACU 03:44
PROVIDERS: Internal Medicine; Physician Assistant; ATTENDING PHYSICIAN Surgery; CONSULT PHYSICIAN Internal Medicine Gastroenterology; EMERGENCY PHYSICIAN Emergency Medicine
DX: K80.10 Calculus of gallbladder with chronic cholecystitis without obstruction (principal); K66.0 Peritoneal adhesions (postprocedural) (postinfection)
CPT/HCPCS: 47563; 88304; 74181; 74300; 76000; 76705; 80053; 81003; 82248; 83690; 84703; 85025; 85027; 85610; 96374; 99285